=== PATIENT | male | born 1940 | race Caucasian/White ===

== ENCOUNTER 2018-01-05 08:35 | Outpatient (RCR) | payer MEDICARE, SELFPAY ==
[2018-01-05 09:11] VITALS: BP 153/80; PULSE 61; RESP 18; TEMP 36.2; BMI 30.1
--- NOTE | 2018-01-05 10:32 | HP.PCM_ITS ---
(1) Infected wound Status: Acute Current Visit: Yes Code(s): T14.8XXA - Other injury of unspecified body region, initial encounter; L08.9 - Local infection of the skin and subcutaneous tissue, unspecified Comment: Left knee (2) Infected wound Status: Acute Current Visit: Yes Code(s): T14.8XXA - Other injury of unspecified body region, initial encounter; L08.9 - Local infection of the skin and subcutaneous tissue, unspecified Comment: Posterior neck (3) Diabetes mellitus Status: Chronic Current Visit: Yes Qualifiers: Diabetes mellitus type: type 2 Code(s): E11.9 - Type 2 diabetes mellitus without complications (4) Hypothyroidism Status: Chronic Current Visit: No Code(s): E03.9 - Hypothyroidism, unspecified (5) Hyperlipidemia Status: Chronic Current Visit: No Code(s): E78.5 - Hyperlipidemia, unspecified (6) Obesity (BMI 30.0-34.9) Status: Chronic Current Visit: No Code(s): E66.9 - Obesity, unspecified (7) Staph skin infection Status: Acute Current Visit: Yes Code(s): L08.9 - Local infection of the skin and subcutaneous tissue, unspecified; B95.8 - Unspecified staphylococcus as the cause of diseases classified elsewhere History of Present Illness Date of Service: 01/05/18 Chief Complaint: Staphylococcus skin infections, left knee and posterior neck History of Wound: This is a 78-year-old male who was in his normal state of health until approximately 2 weeks prior to his presentation. He developed cutaneous infections of the left knee and the posterior neck, and sought treatment by his primary care physician. The left knee infected wound was cultured, and was positive for Staphylococcus species. The patient was treated with a course of oral Bactrim, and received 6 daily injections of Rocephin, the last dose of which was administered yesterday. The patient relates no significant injuries to the area. The infected wounds occurred spontaneously, without obvious cause. Patient has had no prior infections of similar nature. He is, however, noted to be diabetic. Past Medical History Past Medical History: Chronic Problems Diabetes mellitus (Chronic) Hypothyroidism (Chronic) Hyperlipidemia (Chronic) Obesity (BMI 30.0-34.9) (Chronic) Past Medical History: The patient has a history of hypothyroidism, hyperlipidemia, and diabetes mellitus. His history is negative for myocardial infarction, congestive heart failure, cancer, hypertension, cerebrovascular accident, pulmonary disease, and renal disease. Surgical History: - - The patient is undergone a partial knee replacement on the right, lumbar disc surgery ?3, and partial bowel resection in the past for diverticulitis. Allergies/Adverse Reactions: Allergies codeine Allergy (Intermediate, Verified 01/05/18 09:31) Abd cramps/diarrhea Home Medications: Ambulatory Orders Medication Instructions Recorded Acetaminophen [Tylenol Arthritis] 1,300 mg PO PRN PRN 01/05/18 Amlodipine Besylate [Norvasc] 2.5 mg PO DAILY 01/05/18 Atorvastatin Calcium [Lipitor] 10 mg PO QHS 01/05/18 Ceftriaxone [Rocephin] 1 gm IM DAILY 01/05/18 Ceftriaxone [Rocephin] 1,000 mg IM DAILY MDD 01/05/1812/29-01/05/2018 Enalapril Maleate 10 mg PO DAILY 01/05/18 Lansoprazole 30 mg PO DAILY 01/05/18 Levothyroxine [Synthroid] 75 mcg PO DAILY 01/05/18 Meloxicam 15 mg PO DAILY 01/05/18 Metformin HCl [Metformin HCl ER] 1,000 mg PO BID 01/05/18 Pioglitazone HCl 45 mg PO DAILY 01/05/18 Sildenafil Citrate [Viagra] 100 mg PO PRN PRN MDD 100 01/05/18 - Family History Paternal - - The patient's father at the age of 95 from old age. Patient's mother at age of 83 with a history of arthritis. Social History: The patient denies use of tobacco and alcohol products. He is retired from the [employer] business. He is . Lives: Spouse/ Significant Other Smoking Status: Never smoker Tobacco Use: Non-smoker Alcohol: None Drugs: None Review of Systems Constitutional: Denies: Chills, Fever, Weight Change Eyes: Denies: Pain, Vision Change HEENT: Denies: Difficulty Hearing, Difficulty Swallowing, Sinus Congestion Cardiovascular: Denies: Chest Pain, Palpitations Respiratory: Denies: Cough, Shortness of Breath Gastrointestinal: Denies: Diarrhea, Nausea, Vomiting Genitourinary: Denies: Dysuria, Hematuria Endocrine: Denies: Heat/ Cold Intolerance, Polydipsia, Polyuria Hematologic/ Lymphatic: Denies: Easy Bruising, Easy Bleeding - Physical Exam Vital Signs Temp Pulse Resp BP 97.1 F L 61 18 153/80 H 01/05/18 09:11 01/05/18 09:11 01/05/18 09:11 01/05/18 09:11 General: Alert, Oriented x3, Cooperative, No apparent distress, Well developed, Well nourished, - - Patient is moderately obese HEENT: Atraumatic, PERRLA, EOMI, Normocephalic Oral: Moist Mucosa, No Gingival or Mucosal Lesions/ Ulcerations Neck: Supple, No JVD, Negative Carotid Bruits, Negative Hepatojugular Reflux, No Nodes, No Nuchal Rigidity, Trachea Midline, - - There is a small open wound on the posterior neck. Dimensions are documented elsewhere. There is a small amount of nonviable, necrotic tissue. There is no significant erythema or apparent cellulitis. There is tissue thickening in the area, though difficult to determine whether this may represent an underlying abscess. Lungs: Clear to auscultation, Normal air movement, No rhonchi, No wheeze, No rales Cardiovascular: Regular rate, Regular Rhythm, Normal S1, Normal S2, No murmurs Abdomen: Soft, Non Tender, Non-Distended, Obese Extremities: No clubbing, No cyanosis, No edema, No Calf Tenderness, - - Multiple small scattered varicose veins are noted bilaterally in the lower extremities. A small open wounds/ulcerations noted on the left knee. There is a moderate amount of nonviable tissue present. There is no significant erythema or cellulitis. Dimensions are documented elsewhere. Skin: No rashes Wound Measurements and Assessment WC - Nurse 1 - General Ulcer Measurement Start: 01/05/18 09:11 Freq: Status: Active Protocol: Activity Type Activity Date Activity User E-Sign Co-Sign Detail Recorded Client Recorded Date Recorded By Document 01/05/18 09:11 IVONNE [id number] 01/05/18 09:32 IVONNE 01/05/18 09:11 Wound Center Nurse 1 [Ulcer Assessment] 2-LEFT KNEE -Combined with other wound No -Current Size (cm) - Length 0.6 -Current Size (cm) - Width 0.6 -Current Size (cm) - Depth 0.4 -Total Square Cm 0.36 -Photo Taken Yes -Epithelialization Small 1-33% -Tunneling No -Undermining/Tunneling No -Circular Undermining No -Classification - Thickness Unclassifiable (Eschar Covered ) -Exudate Amt Small (1-33%) -Exudate Type Serosanguineous -Wound Margin Flat & Intact -Granulation Amt Small (1-33%) -Granulation Quality Red -Slough/Fibrin Yes -Necrosis Amt Large (67-100%) -Necrotic Tissue Type Adherent Slough -Structure Exposed N/A -Texture (Kemi-wound Skin Appearance) Assessed Localized Edema Scarring -Moisture (Kemi-wound Skin Appearance Assessed ) Dry/Scaly -Color (Kemi-wound Skin Appearance) Assessed -Temperature (Kemi-wound Skin No Abnormality Appearance) (Pt Warm) -Tenderness on Palpation (Kemi-wound No Skin Appearance) -Ulcer Cleansing Rinsed/ Irrigated with Saline -Foul Odor after Cleansing No -Anesthetic Used 4% Lidocaine Solution 1-POSTERIOR UPPER NECK -Combined with other wound No -Current Size (cm) - Length 0.3 -Current Size (cm) - Width 0.4 -Current Size (cm) - Depth 0.2 -Total Square Cm 0.12 -Photo Taken Yes -Epithelialization Small 1-33% -Tunneling No -Undermining/Tunneling No -Circular Undermining No -Classification - Thickness Unclassifiable (Eschar Covered ) -Exudate Amt Small (1-33%) -Exudate Type Serosanguineous -Wound Margin Flat & Intact -Granulation Amt Small (1-33%) -Granulation Quality Red -Slough/Fibrin Yes -Necrosis Amt Large (67-100%) -Necrotic Tissue Type Adherent Slough -Structure Exposed N/A -Texture (Kemi-wound Skin Appearance) Assessed Induration Localized Edema -Moisture (Kemi-wound Skin Appearance Assessed ) Dry/Scaly -Color (Kemi-wound Skin Appearance) Assessed -Temperature (Kemi-wound Skin No Abnormality Appearance) (Pt Warm) -Tenderness on Palpation (Kemi-wound No Skin Appearance) -Ulcer Cleansing Rinsed/ Irrigated with Saline -Foul Odor after Cleansing No -Anesthetic Used 4% Lidocaine Solution [Edema Assessment] -Lower Limb Edema Present Yes -Left Calf (cm) 42.5 -Left Ankle (cm) 24.0 Musculoskeletal: No Muscle Wasting Neurological: Cranial nerves II-XII grossly intact, Neuro grossly intact Psych/Mental Status: Normal Affect, Appropriate, Alert and oriented to time, place, person, mood and affect Debridement Note Laterality: Left - Knee Type of Debridement: Excisional debridement Anesthesia Used: 4% Lidocaine Solution Depth: Down to and including healthy tissue, in the subcutaneous layer Percentage of wound debrided: 100 Instrument Used: 5mm curette Severity: Fat Layer Exposed Amount of bleeding with debridement: Mild Bleeding Controlled with: Compression and gauze Patient tolerated procedure well - Additional Wound Laterality: Not Applicable - Posterior neck Type of Debridement: Excisional debridement Anesthesia Used: 4% Lidocaine Solution Depth: Down to and including healthy tissue, in the subcutaneous layer Percentage of wound debrided: 100 Instrument Used: 5mm curette Severity: Fat Layer Exposed Amount of bleeding with debridement: Mild Bleeding Controlled with: Compression and gauze Patient tolerated procedure: Patient tolerated procedure well Assessment/Plan Active Problems Infected wound (Acute) Left knee Infected wound (Acute) Posterior neck Diabetes mellitus (Chronic) Staph skin infection (Acute) Assessment: This is a 78-year-old male diabetic who presents with small open wounds on the left knee and on the posterior neck, which appeared to start due to an infectious etiology. The patient been treated by his primary care physician with Bactrim orally and Rocephin by injection. Based upon the culture results, indicating Staphylococcus aureus, these antibiotics appear to be appropriate. Bactrim will be continued orally. Plan: Battery of diagnostic tests will be obtained. A CBC, conference of metabolic profile, hemoglobin A1c, serum protein, serum prealbumin, and serum albumin will be obtained. We will also await the results of cultures. Both wounds have been cultured for aerobic and anaerobic bacteria. We are to place patient on Bactrim double strength twice daily. This is in accordance with the patient's recent cultures which were performed at an outlying institution. We will request infectious disease consultation, and I have spoken briefly with Dr. Winter with regard to the patient. The patient has been instructed to optimize his glycemic control. X-rays to be obtained of the left knee, to ascertain any signs of extension into the joint. Collagenase Santyl will be applied topically to each of the 2 wounds on a daily basis. The patient is return in 1 week for reassessment. The patient is not a smoker. Influenza vaccine was not administered today. The patient was 210 pounds. He stands 5 feet 10 inches tall. His BMI is 30.1. Weight loss has been recommended, and collaboration with his primary care physician in this regard has been recommended.
--- NOTE | 2018-01-05 11:00 | RAD_ITS ---
STUDY: X-RAY - LEFT KNEE REASON FOR EXAM: Male, 78 years old. Infected wound TECHNIQUE: 4 view(s) of the knee. COMPARISON: None. FINDINGS: Normal visualized distal femur. Normal visualized proximal tibia and fibula. Normal proximal tibiofibular articulation. There is no demonstrated fracture. 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 There is mild degenerative arthrosis of the lateral femorotibial compartment. There is mild degenerative arthrosis of the patellofemoral articulation. There is no demonstrated joint effusion. There is chondrocalcinosis. Some soft tissue edema seen along the anterior soft tissues superior to the patella. RAD/Knee 4 or More Views IMPRESSION: Degenerative changes. Findings suggest cellulitis along the anterior superior knee. No fracture or bony erosion. Electronically Signed: Ronni May DO at 9:07 EDT Tel , Service support ,
[2018-01-05 12:13] LABS: Hemoglobin 13.4 g/dl (13.0-16.5); Mean Corp Hgb Conc 32.7 g/gl (32-36); Mean Corpuscular Hgb 31.2 pg (27.0-32.0); Mean Corpuscular Volume 95.3 fL (80-94); Platelet Count 275 K/mm3 (150-450); RBC Distribution Width CV 12.9 % (11.6-14.6); RBC Distribution Width SD 44.4 fl (35.1-43.9); White Blood Count 7.2 K/mm3 (4.4-11.0)
[2018-01-05 12:14] LABS: Scan Indicated on CBC? Y/N NO
[2018-01-05 12:25] LABS: AST(SGOT) 22 U/L (15-37); Alanine Aminotransfer ALT/SGPT 31 U/L (16-61); Albumin, Serum 3.7 g/dL (3.2-5.0); Alkaline Phosphatase 62 U/L (45-117); Anion Gap 7 (5-15); BUN 21 mg/dL (7-18); BUN/Creat Ratio 17.4 RATIO (10-20); Calcium,Total 9.6 mg/dL (8.5-10.1); Chloride 106 mmol/L (98-107); Creatinine, Serum 1.21 mg/dL (0.70-1.30); EST Glomerular Filtration Rate 62 mL/min (>60); Est Glom Filt Rate - Afr Amer 75 mL/min (>60); Estimated Creatinine Clearance 53.63 ml/min; Globulin 3.8 g/dL (2.2-4.2); Glucose 137 mg/dL (74-106); Potassium 5.2 mmol/L (3.5-5.1); Protein, Total 7.5 g/dL (6.4-8.2); Sodium Level 142 mmol/L (136-145)
[2018-01-05 12:39] LABS: Hemoglobin A1c 8.6 % (4.2-6.3)
== END 2018-01-09 23:59 ==
LOC: WC 08:35
PROVIDERS: Family Provider Family Medicine; PCP Family Medicine; Visit Provider Surgery
DX: E11.622 Type 2 diabetes mellitus with other skin ulcer (principal); L08.9 Local infection of the skin and subcutaneous tissue, unspecified; T14.8XXA Other injury of unspecified body region, initial encounter; E78.5 Hyperlipidemia, unspecified; E66.9 Obesity, unspecified; Z68.30 Body mass index [BMI] 30.0-30.9, adult; Z71.3 Dietary counseling and surveillance; B95.8 Unspecified staphylococcus as the cause of diseases classified elsewhere; L97.822 Non-pressure chronic ulcer of other part of left lower leg with fat layer exposed; L97.812 Non-pressure chronic ulcer of other part of right lower leg with fat layer exposed
CPT/HCPCS: 11042; 73564; 80053; 83036; 84134; 84156; 85027; 87070; 87075; 87077; 87186; 87205; 99214; G0463

== ENCOUNTER 2018-01-29 09:15 | Outpatient (RCR) | payer MEDICARE, SELFPAY ==
[2018-01-10 01:18] VITALS: BP 153/80; PULSE 61; RESP 18; TEMP 36.2
[2018-01-12 09:55] VITALS: BP 144/72; PULSE 66; RESP 18; TEMP 36.2
--- NOTE | 2018-01-12 10:58 | PCM.HP.ID ---
Problem List (1) Staph skin infection Status: Acute Reason for Consult: abscess Consulted by: Dr. Hussein History of Present Illness: The patient is a 78 year old M with no prior h/o skin abscess who presented to wound care a week ago with 2 weeks of L knee and posterior neck/scalp pain, redness, swelling, and mild thick white drainage. No inciting event. No fever. No pain with knee movement. Saw PCP, given bactrim without much improvement, then 6 days of IM ceftriaxone with wound care referral. Cxs with MSSA. Seen by Dr. Hussein 01/05, put back on bactrim, no knee and neck much improved. Full ROS performed and neg except as noted above. - Medical History Past Medical History (Chronic Problems): Chronic Problems Diabetes mellitus (Chronic) Hypothyroidism (Chronic) Hyperlipidemia (Chronic) Obesity (BMI 30.0-34.9) (Chronic) Allergies/Adverse Reactions: Allergies codeine Allergy (Intermediate, Verified 01/05/18 09:31) Abd cramps/diarrhea Home Medications: Ambulatory Orders Medication Instructions Recorded Acetaminophen [Tylenol Arthritis] 1,300 mg PO PRN PRN 01/05/18 Amlodipine Besylate [Norvasc] 2.5 mg PO DAILY 01/05/18 Atorvastatin Calcium [Lipitor] 10 mg PO QHS 01/05/18 Ceftriaxone [Rocephin] 1 gm IM DAILY 01/05/18 Ceftriaxone [Rocephin] 1,000 mg IM DAILY MDD 01/05/1812/29-01/05/2018 Enalapril Maleate 10 mg PO DAILY 01/05/18 Lansoprazole 30 mg PO DAILY 01/05/18 Levothyroxine [Synthroid] 75 mcg PO DAILY 01/05/18 Meloxicam 15 mg PO DAILY 01/05/18 Metformin HCl [Metformin HCl ER] 1,000 mg PO BID 01/05/18 Pioglitazone HCl 45 mg PO DAILY 01/05/18 Sildenafil Citrate [Viagra] 100 mg PO PRN PRN MDD 100 01/05/18 - Social History SMOKING STATUS:: Never smoker Vital Signs Temp Pulse Resp BP 97.1 F L 66 18 144/72 H 01/12/18 09:55 01/12/18 09:55 01/12/18 09:55 01/12/18 09:55 Weight: 95.254 kg - Other Studies Radiology: [] reviewed Other Studies: [] Route of nutrition/ use of supplements: [] Nutritional Intake: [] IV Site: [] Dahl Catheter: [] - Physical Exam General: Alert, Oriented x3, Cooperative, No apparent distress HEENT: Atraumatic, PERRLA, EOMI Neck: Supple, No Nodes Lungs: Clear to auscultation, Normal air movement Cardiovascular: Regular rate, Regular Rhythm, No murmurs Abdomen: Bowel Sounds Present, Soft, Non Tender, Non-Distended Extremities: No edema Skin: - - small area of redness on L patella and posterior neck. Nearly resolved induration, no drainage. Musculoskeletal: No Tenderness to Palpation of Joints or Extremities Neurological: Cranial nerves II-XII grossly intact - Assessment/Plan Antibiotics: [] Assessment/Plan: [] MSSA abscess of skin over L knee and posterior neck - reviewed cxs and imaging. No drainable abscess at this time. No signs of deeper infection. Much improved with bactrim. Plan on one more week of abx. Neck also showed rare MSSE. Thank you, will follow as needed, d/w Dr. Hussein.
--- NOTE | 2018-01-12 12:00 | PCM.WC.HP ---
(1) Infected wound Status: Chronic Current Visit: Yes Code(s): T14.8XXA - Other injury of unspecified body region, initial encounter; L08.9 - Local infection of the skin and subcutaneous tissue, unspecified Comment: Left knee (2) Infected wound Status: Chronic Current Visit: Yes Code(s): T14.8XXA - Other injury of unspecified body region, initial encounter; L08.9 - Local infection of the skin and subcutaneous tissue, unspecified Comment: Posterior neck (3) Diabetes mellitus Status: Chronic Current Visit: Yes Qualifiers: Diabetes mellitus type: type 2 Code(s): E11.9 - Type 2 diabetes mellitus without complications (4) Hypothyroidism Status: Chronic Current Visit: No Code(s): E03.9 - Hypothyroidism, unspecified (5) Hyperlipidemia Status: Chronic Current Visit: No Code(s): E78.5 - Hyperlipidemia, unspecified (6) Obesity (BMI 30.0-34.9) Status: Chronic Current Visit: No Code(s): E66.9 - Obesity, unspecified (7) Staph skin infection Status: Acute Current Visit: Yes Code(s): L08.9 - Local infection of the skin and subcutaneous tissue, unspecified; B95.8 - Unspecified staphylococcus as the cause of diseases classified elsewhere History of Present Illness Date of Service: 01/12/18 Chief Complaint: Staphylococcus skin infections, left knee and posterior neck History of Wound: This is a 78-year-old male who was in his normal state of health until approximately 2 weeks prior to his presentation. He developed cutaneous infections of the left knee and the posterior neck, and sought treatment by his primary care physician. The left knee infected wound was cultured, and was positive for Staphylococcus species. The patient was treated with a course of oral Bactrim, and received 6 daily injections of Rocephin. The patient relates no significant injuries to the area. The infected wounds occurred spontaneously, without obvious cause. Patient has had no prior infections of similar nature. He is, however, noted to be diabetic. Past Medical History Past Medical History: Chronic Problems Infected wound (Chronic) Left knee Infected wound (Chronic) Posterior neck Diabetes mellitus (Chronic) Hypothyroidism (Chronic) Hyperlipidemia (Chronic) Obesity (BMI 30.0-34.9) (Chronic) Surgical History: - - The patient is undergone a partial knee replacement on the right, lumbar disc surgery ?3, and partial bowel resection in the past for diverticulitis. Allergies/Adverse Reactions: Allergies codeine Allergy (Intermediate, Verified 01/05/18 09:31) Abd cramps/diarrhea Home Medications: Ambulatory Orders Medication Instructions Recorded Acetaminophen [Tylenol Arthritis] 1,300 mg PO PRN PRN 01/05/18 Amlodipine Besylate [Norvasc] 2.5 mg PO DAILY 01/05/18 Atorvastatin Calcium [Lipitor] 10 mg PO QHS 01/05/18 Ceftriaxone [Rocephin] 1 gm IM DAILY 01/05/18 Ceftriaxone [Rocephin] 1,000 mg IM DAILY MDD 01/05/1812/29-01/05/2018 Enalapril Maleate 10 mg PO DAILY 01/05/18 Lansoprazole 30 mg PO DAILY 01/05/18 Levothyroxine [Synthroid] 75 mcg PO DAILY 01/05/18 Meloxicam 15 mg PO DAILY 01/05/18 Metformin HCl [Metformin HCl ER] 1,000 mg PO BID 01/05/18 Pioglitazone HCl 45 mg PO DAILY 01/05/18 Sildenafil Citrate [Viagra] 100 mg PO PRN PRN MDD 100 01/05/18 - Family History Paternal - - The patient's father at the age of 95 from old age. Patient's mother at age of 83 with a history of arthritis. Smoking Status: Never smoker Tobacco Use: Non-smoker Review of Systems Constitutional: Denies: Chills, Fever, Weight Change Eyes: Denies: Pain, Vision Change HEENT: Denies: Difficulty Hearing, Difficulty Swallowing, Sinus Congestion Cardiovascular: Denies: Chest Pain, Palpitations Respiratory: Denies: Cough, Shortness of Breath Gastrointestinal: Denies: Diarrhea, Nausea, Vomiting Genitourinary: Denies: Dysuria, Hematuria Endocrine: Denies: Heat/ Cold Intolerance, Polydipsia, Polyuria Hematologic/ Lymphatic: Denies: Easy Bruising, Easy Bleeding - Physical Exam Vital Signs Temp Pulse Resp BP 97.1 F L 66 18 144/72 H 01/12/18 09:55 01/12/18 09:55 01/12/18 09:55 01/12/18 09:55 General: Alert, Oriented x3, Cooperative, No apparent distress, Well developed, Well nourished HEENT: Atraumatic, PERRLA, EOMI, Normocephalic Oral: Moist Mucosa Neck: No JVD Lungs: Normal air movement Abdomen: Non-Distended Extremities: No clubbing, No cyanosis, No edema, No Calf Tenderness, - - The infected wound on the left knee is markedly improved. There is no significant erythema or cellulitis. There is no fluctuance. A very small superficial ulceration is noted, which is pink and healthy in appearance, with evidence of epithelialization. Skin: No rashes, - - The infected site on the posterior neck is markedly improved. The ulcerated area is quite small in size, and is pink and healthy in appearance. There is a slight amount of fluctuance, though markedly diminished within the last week. There is no drainage. There is no sign of cellulitis. Wound Measurements and Assessment WC - Nurse 1 - General Ulcer Measurement Start: 01/12/18 09:55 Freq: Status: Active Protocol: Activity Type Activity Date Activity User E-Sign Co-Sign Detail Recorded Client Recorded Date Recorded By Document 01/12/18 09:55 [id number] 01/12/18 10:01 01/12/18 09:55 Wound Center Nurse 1 [Ulcer Assessment] 2-LEFT KNEE -Combined with other wound No -Current Size (cm) - Length 0.4 -Current Size (cm) - Width 0.5 -Current Size (cm) - Depth 0.1 -Total Square Cm 0.20 -Photo Taken No -Epithelialization Medium 34-66% -Tunneling No -Undermining/Tunneling No -Circular Undermining No -Exudate Amt Small (1-33%) -Exudate Type Serosanguineous -Wound Margin Flat & Intact -Granulation Amt Small (1-33%) -Granulation Quality Red -Slough/Fibrin Yes -Necrosis Amt Medium (34-66%) -Necrotic Tissue Type Adherent Slough -Structure Exposed N/A -Texture (Kemi-wound Skin Appearance) Assessed Scarring -Moisture (Kemi-wound Skin Appearance Assessed ) Dry/Scaly -Color (Kemi-wound Skin Appearance) Assessed -Temperature (Kemi-wound Skin No Abnormality Appearance) (Pt Warm) -Tenderness on Palpation (Kemi-wound No Skin Appearance) -Ulcer Cleansing Rinsed/ Irrigated with Saline -Foul Odor after Cleansing No -Anesthetic Used 5% Lidocaine Gel 1-POSTERIOR UPPER NECK -Combined with other wound No -Current Size (cm) - Length 0.2 -Current Size (cm) - Width 0.2 -Current Size (cm) - Depth 0.1 -Total Square Cm 0.04 -Photo Taken No -Epithelialization Large 67-100% -Tunneling No -Undermining/Tunneling No -Circular Undermining No -Exudate Amt Small (1-33%) -Exudate Type Serosanguineous -Wound Margin Flat & Intact -Granulation Amt Medium (34-66%) -Granulation Quality Red -Slough/Fibrin Yes -Necrosis Amt Medium (34-66%) -Necrotic Tissue Type Adherent Slough -Structure Exposed N/A -Texture (Kemi-wound Skin Appearance) Assessed Localized Edema -Moisture (Kemi-wound Skin Appearance Assessed ) Dry/Scaly -Color (Kemi-wound Skin Appearance) Assessed -Temperature (Kemi-wound Skin No Abnormality Appearance) (Pt Warm) -Tenderness on Palpation (Kemi-wound No Skin Appearance) -Ulcer Cleansing Rinsed/ Irrigated with Saline -Foul Odor after Cleansing No -Anesthetic Used 5% Lidocaine Gel [Edema Assessment] -Lower Limb Edema Present NA Neurological: Cranial nerves II-XII grossly intact, Deep Tendon Reflexes 2+/4 and Symmetrical Psych/Mental Status: Normal Affect, Appropriate, Alert and oriented to time, place, person, mood and affect Debridement Note No debridement was completed today Assessment/Plan Active Problems Infected wound (Chronic) Left knee Infected wound (Chronic) Posterior neck Diabetes mellitus (Chronic) Staph skin infection (Acute) Assessment: This is a 78-year-old male diabetic who presents with small open wounds on the left knee and on the posterior neck, which appeared to start due to an infectious etiology. The patient had been treated by his primary care physician with Bactrim orally and Rocephin by injection. Based upon the culture results, indicating Staphylococcus aureus, these antibiotics appear to be appropriate. Bactrim will be continued orally. The patient has undergone a battery of diagnostic laboratory studies, which have been reviewed. They are largely normal. The patient appears to be well nourished. His white count is normal. Plan: The patient has been evaluated by Dr. Winter, infectious disease specialist. Dr. Winter has indicated that he is pleased with the patient's progress. He has recommended that Bactrim be continued for an additional amount of time. In this regard, patient has been given a new prescription for Bactrim double strength to be taken twice daily for an additional week. Bactrim appears appropriate given the results of the patient's recent cultures. Patient is to return in 1 week for reassessment. We are to use collagen hydrogel topically on each of the small wounds, that on the left knee and that on the posterior neck. X-rays of the left knee reveal no evidence of underlying or deep seated infection. The patient has been instructed to optimize his glycemic control. . The patient is not a smoker. Influenza vaccine was not administered today. The patient was 210 pounds. He stands 5 feet 10 inches tall. His BMI is 30.1. Weight loss has been recommended, and collaboration with his primary care physician in this regard has been recommended.
[2018-01-22 11:33] VITALS: BP 140/77; PULSE 68; RESP 18; TEMP 36.6
--- NOTE | 2018-01-22 12:59 | PCM.WC.PN ---
(1) Staph skin infection Status: Acute Current Visit: Yes Code(s): L08.9 - Local infection of the skin and subcutaneous tissue, unspecified; B95.8 - Unspecified staphylococcus as the cause of diseases classified elsewhere (2) Diabetes mellitus Status: Chronic Current Visit: Yes Qualifiers: Diabetes mellitus type: type 2 Code(s): E11.9 - Type 2 diabetes mellitus without complications (3) Infected wound Status: Chronic Current Visit: Yes Code(s): T14.8XXA - Other injury of unspecified body region, initial encounter; L08.9 - Local infection of the skin and subcutaneous tissue, unspecified Comment: Left knee (4) Hyperlipidemia Status: Chronic Current Visit: No Code(s): E78.5 - Hyperlipidemia, unspecified (5) Hypothyroidism Status: Chronic Current Visit: No Code(s): E03.9 - Hypothyroidism, unspecified (6) Nonhealing ulcer of left lower leg Status: Acute Current Visit: Yes Code(s): L97.929 - Non-pressure chronic ulcer of unspecified part of left lower leg with unspecified severity Type of Wound Date of Service: 01/22/18 Chief Complaint: Staphylococcus skin infections, left knee and posterior neck History of Wound: This is a 78-year-old male who was in his normal state of health until approximately 2 weeks prior to his presentation. He developed cutaneous infections of the left knee and the posterior neck, and sought treatment by his primary care physician. The left knee infected wound was cultured, and was positive for Staphylococcus species. The patient was treated with a course of oral Bactrim, and received 6 daily injections of Rocephin. The patient relates no significant injuries to the area. The infected wounds occurred spontaneously, without obvious cause. Patient has had no prior infections of similar nature. He is, however, noted to be diabetic. Progress of Wound: Today the ulcer on the right lateral neck is resolved. The ulcer on the left knee which is about 0.3 x 0.3 has hyper granulated. Will apply nitro sticks to the area dry dressing and follow-up in 1 week. Patient is currently taking his antibiotic for his staph infection. Patient was taught how to decolonize himself and the staff with Hibiclens. - Physical Exam Vital Signs Temp Pulse Resp BP 97.8 F 68 18 140/77 H 01/22/18 11:33 01/22/18 11:33 01/22/18 11:33 01/22/18 11:33 General: Oriented x3, Cooperative, Well developed HEENT: Atraumatic, PERRLA, - - Right lateral neck ulcer Oral: Moist Mucosa Neck: Supple, No JVD Lungs: Clear to auscultation, Normal air movement Cardiovascular: Regular rate, Regular Rhythm Abdomen: Bowel Sounds Present, Soft, Non Tender, No Hepato-splenomegaly Extremities: No clubbing, No edema, - - Left knee ulcer Wound Measurements and Assessment WC - Nurse 1 - General Ulcer Measurement Start: 01/12/18 09:55 Freq: Status: Active Protocol: Activity Type Activity Date Activity User E-Sign Co-Sign Detail Recorded Client Recorded Date Recorded By Document 01/22/18 11:33 [id number] 01/22/18 11:37 01/22/18 11:33 Wound Center Nurse 1 [Ulcer Assessment] 2-LEFT KNEE -Combined with other wound No -Current Size (cm) - Length 0.3 -Current Size (cm) - Width 0.4 -Current Size (cm) - Depth 0 -Total Square Cm 0.12 -Photo Taken No -Epithelialization None Present -Tunneling No -Undermining/Tunneling No -Circular Undermining No -Exudate Amt Small (1-33%) -Exudate Type Serosanguineous -Wound Margin Distinct, Outline Attached -Granulation Amt None Present (0 %) -Granulation Quality N/A -Slough/Fibrin No -Necrosis Amt None Present (0 %) -Structure Exposed None/Limited to Skin Breakdown -Texture (Kemi-wound Skin Appearance) No Abnormality Assessed -Moisture (Kemi-wound Skin Appearance No Abnormality ) Assessed -Color (Kemi-wound Skin Appearance) No Abnormality Assessed -Temperature (Kemi-wound Skin No Abnormality Appearance) (Pt Warm) -Tenderness on Palpation (Kemi-wound No Skin Appearance) -Ulcer Cleansing Rinsed/ Irrigated with Saline -Foul Odor after Cleansing No -Anesthetic Used 4% Lidocaine Solution 1-POSTERIOR UPPER NECK -Combined with other wound No -Current Size (cm) - Length 0 -Current Size (cm) - Width 0 -Current Size (cm) - Depth 0 -Total Square Cm 0 -Date of Last Picture (Recall this 01/22/18 field) -Photo Taken Yes -Epithelialization Large 67-100% [Edema Assessment] -Lower Limb Edema Present NA WC - Nurse 2 - General Ulcer CM Notes Start: 01/12/18 09:55 Freq: Status: Active Protocol: Activity Type Activity Date Activity User E-Sign Co-Sign Detail Recorded Client Recorded Date Recorded By Document 01/22/18 12:30 [email or web address] [id number] 01/22/18 12:31 01/22/18 12:30 Wound Center Nurse 2 [Procedure/Treatment] 2-LEFT KNEE -Time 12:30 -Correct Patient Yes -Correct Side, Site, Position Yes -Correct Procedure Yes -Procedure Performed No -Wound/Ulcer Outcome Not Healed -Ulcer Cleansing Rinsed/ Irrigated with Saline -Foul Odor after Cleansing No -Bleeding Controlled with Silver Nitrate 1-POSTERIOR UPPER NECK -Time 12:31 -Correct Patient Yes -Correct Side, Site, Position Yes -Correct Procedure Yes -Procedure Performed No -Post Debridement Size (cm) - Length 0 -Post Debridement Size (cm) - Width 0 -Post Debridement Size (cm) - Depth 0 -Total Square Cm 0 -Wound/Ulcer Outcome Healed- Epithelialized [See Physician Procedure note for Specifics] Pain Scale: 0-10 Numeric [Pain] -Is Patient Pain Free? Yes Musculoskeletal: No Tenderness to Palpation of Joints or Extremities Lymphatic: No Cervical, Supraclavicular, or Inguinal Adenopathy Neurological: Cranial nerves II-XII grossly intact, Neuro grossly intact Psych/Mental Status: Normal Affect, Appropriate, Alert and oriented to time, place, person, mood and affect Debridement Note Post-Debridement Measurements/Treatment - Nurse 2 - General Ulcer CM Notes Start: 01/12/18 09:55 Freq: Status: Active Protocol: Activity Type Activity Date Activity User E-Sign Co-Sign Detail Recorded Client Recorded Date Recorded By Document 01/12/18 11:44 [id number] 01/12/18 12:00 JS Document 01/22/18 12:30 [id number] 01/22/18 12:31 01/12/18 01/22/18 11:44 12:30 Wound Center Nurse 2 2-LEFT KNEE -Time 11:45 12:30 -Correct Patient Yes Yes -Correct Side, Site, Position Yes Yes -Correct Procedure Yes Yes -Procedure Performed No No -Wound/Ulcer Outcome Not Healed Not Healed -Ulcer Cleansing Rinsed/ Rinsed/ Irrigated with Irrigated with Saline Saline -Foul Odor after Cleansing No No -Bioengineered Tissue No -Topical Lidocaine (%) 4 -Lidocaine (ml) 5 -Bleeding Controlled with NA Silver Nitrate -Treatment Response Procedure Tolerated Well 1-POSTERIOR UPPER NECK -Time 11:46 12:31 -Correct Patient Yes Yes -Correct Side, Site, Position Yes Yes -Correct Procedure Yes Yes -Procedure Performed No No -Post Debridement Size (cm) - Length 0 -Post Debridement Size (cm) - Width 0 -Post Debridement Size (cm) - Depth 0 -Total Square Cm 0 -Wound/Ulcer Outcome Not Healed Healed- Epithelialized -Ulcer Cleansing Rinsed/ Irrigated with Saline -Foul Odor after Cleansing No -Bioengineered Tissue No -Topical Lidocaine (%) 4 -Lidocaine (ml) 5 -Bleeding Controlled with NA -Treatment Response Procedure Tolerated Well Pain Scale: 0-10 Numeric Is Patient Pain Free? Yes Yes Wound debrided: Left knee No debridement was completed today Assessment/Plan Active Problems Infected wound (Chronic) Left knee Infected wound (Chronic) Posterior neck Diabetes mellitus (Chronic) Staph skin infection (Acute) Nonhealing ulcer of left lower leg (Acute) Assessment: This is a 78-year-old male diabetic who presents with small open wounds on the left knee and on the posterior neck, which appeared to start due to an infectious etiology. The patient had been treated by his primary care physician with Bactrim orally and Rocephin by injection. Based upon the culture results, indicating Staphylococcus aureus, these antibiotics appear to be appropriate. Bactrim will be continued orally. The patient has undergone a battery of diagnostic laboratory studies, which have been reviewed. They are largely normal. The patient appears to be well nourished. His white count is normal. Right knee ulcer. Right lateral neck ulcer resolved Plan: The patient has been evaluated by Dr. Winter, infectious disease specialist. Dr. Winter has indicated that he is pleased with the patient's progress. He has recommended that Bactrim be continued for an additional amount of time. In this regard, patient has been given a new prescription for Bactrim double strength to be taken twice daily for an additional week. Bactrim appears appropriate given the results of the patient's recent cultures. X-rays of the left knee reveal no evidence of underlying or deep seated infection. The patient has been instructed to optimize his glycemic control. Patient has been taught how to decolonize himself with Hibiclens washing daily from head to toe all hair follicle with Hibiclens for 7 days then weekly then once a month for 2 months. Patient is to apply dry dressing to the left knee monitor. Right lateral neck has resolved he can leave it open to air and get a haircut.
[2018-01-29 09:38] VITALS: BP 139/97; PULSE 56; RESP 16; TEMP 35.7
--- NOTE | 2018-01-29 10:06 | PCM.WC.PN ---
(1) Staph skin infection Status: Acute Current Visit: Yes Code(s): L08.9 - Local infection of the skin and subcutaneous tissue, unspecified; B95.8 - Unspecified staphylococcus as the cause of diseases classified elsewhere (2) Diabetes mellitus Status: Chronic Current Visit: Yes Qualifiers: Diabetes mellitus type: type 2 Code(s): E11.9 - Type 2 diabetes mellitus without complications (3) Infected wound Status: Chronic Current Visit: No Code(s): T14.8XXA - Other injury of unspecified body region, initial encounter; L08.9 - Local infection of the skin and subcutaneous tissue, unspecified Comment: Left knee (4) Hyperlipidemia Status: Chronic Current Visit: Yes Code(s): E78.5 - Hyperlipidemia, unspecified (5) Hypothyroidism Status: Chronic Current Visit: Yes Code(s): E03.9 - Hypothyroidism, unspecified (6) Nonhealing ulcer of left lower leg Status: Acute Current Visit: No Code(s): L97.929 - Non-pressure chronic ulcer of unspecified part of left lower leg with unspecified severity Type of Wound Date of Service: 01/29/18 Chief Complaint: Staphylococcus skin infections, left knee and posterior neck History of Wound: This is a 78-year-old male who was in his normal state of health until approximately 2 weeks prior to his presentation. He developed cutaneous infections of the left knee and the posterior neck, and sought treatment by his primary care physician. The left knee infected wound was cultured, and was positive for Staphylococcus species. The patient was treated with a course of oral Bactrim, and received 6 daily injections of Rocephin. The patient relates no significant injuries to the area. The infected wounds occurred spontaneously, without obvious cause. Patient has had no prior infections of similar nature. He is, however, noted to be diabetic. Progress of Wound: Today the ulcer on the right lateral neck is resolved. Left knee ulcer resolved - Physical Exam Vital Signs Temp Pulse Resp BP 96.2 F L 56 L 16 139/97 H 01/29/18 09:38 01/29/18 09:38 01/29/18 09:38 01/29/18 09:38 General: Oriented x3, Cooperative, Well developed HEENT: Atraumatic, PERRLA Oral: Moist Mucosa Neck: Supple, No JVD Lungs: Clear to auscultation, Normal air movement Cardiovascular: Regular rate, Regular Rhythm Abdomen: Bowel Sounds Present, Soft, Non Tender, No Hepato-splenomegaly Extremities: No clubbing, No edema Skin: Ulcer/ Wound - Left knee ulcer Wound Measurements and Assessment WC - Nurse 1 - General Ulcer Measurement Start: 01/12/18 09:55 Freq: Status: Active Protocol: Activity Type Activity Date Activity User E-Sign Co-Sign Detail Recorded Client Recorded Date Recorded By Document 01/29/18 09:38 [id number] 01/29/18 09:58 01/29/18 09:38 Wound Center Nurse 1 [Ulcer Assessment] 2-LEFT KNEE -Combined with other wound No -Current Size (cm) - Length 0.1 -Current Size (cm) - Width 0.1 -Current Size (cm) - Depth 0.1 -Total Square Cm 0.01 -Photo Taken No -Epithelialization Small 1-33% -Tunneling No -Undermining/Tunneling No -Circular Undermining No -Classification - Thickness Unclassifiable (Eschar Covered ) -Exudate Amt None Present (0 %) -Wound Margin Distinct, Outline Attached -Granulation Amt Small (1-33%) -Granulation Quality Red -Slough/Fibrin Yes -Necrosis Amt None Present (0 %) -Necrotic Tissue Type Adherent Slough -Structure Exposed N/A -Texture (Kemi-wound Skin Appearance) No Abnormality -Moisture (Kemi-wound Skin Appearance No Abnormality ) -Color (Kemi-wound Skin Appearance) No Abnormality -Temperature (Kemi-wound Skin No Abnormality Appearance) (Pt Warm) -Tenderness on Palpation (Kemi-wound No Skin Appearance) -Ulcer Cleansing Not Cleansed -Foul Odor after Cleansing No - Nurse 2 - General Ulcer CM Notes Start: 01/12/18 09:55 Freq: Status: Active Protocol: Activity Type Activity Date Activity User E-Sign Co-Sign Detail Recorded Client Recorded Date Recorded By Document 01/29/18 09:38 [id number] 01/29/18 09:58 01/29/18 09:38 Wound Center Nurse 2 [Procedure/Treatment] -Time 09:43 -Correct Patient Yes -Correct Side, Site, Position Yes -Correct Procedure Yes -Procedure Performed No -Post Debridement Size (cm) - Length 0 -Post Debridement Size (cm) - Width 0 -Post Debridement Size (cm) - Depth 0 -Total Square Cm 0 -Wound/Ulcer Outcome Healed- Epithelialized -Ulcer Cleansing Not Cleansed -Foul Odor after Cleansing No -Bioengineered Tissue No -Bleeding Controlled with NA Musculoskeletal: No Tenderness to Palpation of Joints or Extremities Lymphatic: No Cervical, Supraclavicular, or Inguinal Adenopathy Neurological: Cranial nerves II-XII grossly intact, Neuro grossly intact Psych/Mental Status: Normal Affect, Appropriate Debridement Note Post-Debridement Measurements/Treatment WC - Nurse 2 - General Ulcer CM Notes Start: 01/12/18 09:55 Freq: Status: Active Protocol: Activity Type Activity Date Activity User E-Sign Co-Sign Detail Recorded Client Recorded Date Recorded By Document 01/12/18 11:44 JS [id number] 01/12/18 12:00 JS Document 01/22/18 12:30 JS [email or web address] 01/22/18 12:31 JS Document 01/29/18 09:38 JS [id number] 01/29/18 09:58 JS 01/12/18 01/22/18 01/29/18 11:44 12:30 09:38 Wound Center Nurse 2 2-LEFT KNEE -Time 11:45 12:30 09:43 -Correct Patient Yes Yes Yes -Correct Side, Site, Position Yes Yes Yes -Correct Procedure Yes Yes Yes -Procedure Performed No No No -Post Debridement Size (cm) - Length 0 -Post Debridement Size (cm) - Width 0 -Post Debridement Size (cm) - Depth 0 -Total Square Cm 0 -Wound/Ulcer Outcome Not Healed Not Healed Healed- Epithelialized -Ulcer Cleansing Rinsed/ Rinsed/ Not Cleansed Irrigated with Irrigated with Saline Saline -Foul Odor after Cleansing No No No -Bioengineered Tissue No No -Topical Lidocaine (%) 4 -Lidocaine (ml) 5 -Bleeding Controlled with NA Silver Nitrate NA -Treatment Response Procedure Tolerated Well 1-POSTERIOR UPPER NECK -Time 11:46 12:31 -Correct Patient Yes Yes -Correct Side, Site, Position Yes Yes -Correct Procedure Yes Yes -Procedure Performed No No -Post Debridement Size (cm) - Length 0 -Post Debridement Size (cm) - Width 0 -Post Debridement Size (cm) - Depth 0 -Total Square Cm 0 -Wound/Ulcer Outcome Not Healed Healed- Epithelialized -Ulcer Cleansing Rinsed/ Irrigated with Saline -Foul Odor after Cleansing No -Bioengineered Tissue No -Topical Lidocaine (%) 4 -Lidocaine (ml) 5 -Bleeding Controlled with NA -Treatment Response Procedure Tolerated Well Pain Scale: 0-10 Numeric Is Patient Pain Free? Yes Yes Wound debrided: Left knee ulcer No debridement was completed today Assessment/Plan Active Problems Infected wound (Chronic) Posterior neck Diabetes mellitus (Chronic) Hypothyroidism (Chronic) Hyperlipidemia (Chronic) Staph skin infection (Acute) Assessment: This is a 78-year-old male diabetic who presents with small open wounds on the left knee and on the posterior neck, which appeared to start due to an infectious etiology. The patient had been treated by his primary care physician with Bactrim orally and Rocephin by injection. Based upon the culture results, indicating Staphylococcus aureus, these antibiotics appear to be appropriate. Bactrim will be continued orally. The patient has undergone a battery of diagnostic laboratory studies, which have been reviewed. They are largely normal. The patient appears to be well nourished. His white count is normal. Right knee ulcer. Right lateral neck ulcer resolved Plan: Patient was taught how to decolonize self with using Hibiclens scrubs. She is to come continue now weekly scrubs with Hibiclens and then he stops. Left knee healed. Patient discharge from the wound center follow-up as needed
== END 2018-02-09 23:59 ==
LOC: WC 09:15
PROVIDERS: Family Provider Family Medicine; PCP Family Medicine; Visit Provider Nurse Practitioner
DX: L08.9 Local infection of the skin and subcutaneous tissue, unspecified (principal); E78.5 Hyperlipidemia, unspecified; E11.9 Type 2 diabetes mellitus without complications; B95.8 Unspecified staphylococcus as the cause of diseases classified elsewhere; E66.9 Obesity, unspecified; E03.9 Hypothyroidism, unspecified; Z68.30 Body mass index [BMI] 30.0-30.9, adult; Z71.3 Dietary counseling and surveillance; Z79.899 Other long term (current) drug therapy; Z79.84 Long term (current) use of oral hypoglycemic drugs; L02.11 Cutaneous abscess of neck; L02.416 Cutaneous abscess of left lower limb
CPT/HCPCS: 17250; 99211; 99212; G0463